=== PATIENT | female | born 1985 | race Caucasian/White ===

== ENCOUNTER 2016-06-09 13:03 | Inpatient (IN) | payer BC ==
[~2016-06-09] VITALS: Ht 167.6 cm; Wt 68.2 kg
[2016-06-09 13:53] LABS: BASOPHIL % 0.5 % (0-2); PLATELET COUNT 173 x10^3mcL (130-400)
[2016-06-09 13:54] LABS: RED CELL DISTRIBUTION WIDTH 15.3 % (11.5-14.5)
[2016-06-09 14:21] LABS: CALCIUM 8.8 mg/dL (8.5-10.1); CHLORIDE SERUM 102 mmol/L (98-107); CREATININE SERUM 0.7 mg/dL (0.6-1.0); GFR1 > 60 mL/min; GLUCOSE SERUM 101 mg/dL (74-106); POTASSIUM SERUM 3.7 mmol/L (3.5-5.1); SODIUM SERUM 138 mmol/L (136-145)
[2016-06-09 14:33] LABS: ALBUMIN 4.1 g/dL (3.4-5.0); ALKALINE PHOSPHATASE 54 U/L (46-116); ALT/SGPT 21 U/L (14-59); AST/SGOT 19 U/L (15-37); BILIRUBIN TOTAL 0.5 mg/dL (0.20-1.00); LIPASE 158 IU/L (73-393); T4(THYROXINE) 9.7 ug/dL (4.7-13.3); TOTAL PROTEIN, SERUM 7.8 g/dL (6.4-8.2)
[2016-06-09 15:33] LABS: AMPHETAMINE QUAL UR NONE DETECTED (NEG <=1000)
[2016-06-09 18:03] LABS: microscopic required? NO
[2016-06-09 18:15] LABS: CHOLESTEROL/HDL RATIO 1.9
[2016-06-09 18:20] LABS: UA SPECIFIC GRAVITY <=1.005 (1.005-1.035); urine erythrocyte NEGATIVE (NEGATIVE)
[2016-06-09 19:57] VITALS: BP 134/88
[2016-06-09 21:06] VITALS: BP 110/75
[2016-06-10 05:46] VITALS: BP 112/63
[2016-06-10 06:21] LABS: CALCIUM 8.1 mg/dL (8.5-10.1); CARBON DIOXIDE 23.9 mmol/L (21-32); CHLORIDE SERUM 110 mmol/L (98-107); CREATININE SERUM 0.7 mg/dL (0.6-1.0); GFR1 > 60 mL/min; GLUCOSE SERUM 84 mg/dL (74-106); MAGNESIUM 1.9 mg/dL (1.8-2.4); PHOSPHOROUS 3.6 mg/dL (2.5-4.9); SODIUM SERUM 144 mmol/L (136-145)
[2016-06-10 06:36] LABS: BASOPHIL % 0.5 % (0-2); PLATELET COUNT 139 x10^3mcL (130-400)
[2016-06-10 06:37] LABS: RED CELL DISTRIBUTION WIDTH 14.7 % (11.5-14.5)
[2016-06-10 09:20] VITALS: BP 114/77
[2016-06-10 13:21] VITALS: BP 126/63
[2016-06-10 17:00] VITALS: BP 113/69
== END 2016-06-10 20:03 | disposition left against medical advice (07) | DRG 206 ==
LOC: ED 13:03 → DU 17:36
PROVIDERS: Emergency Medicine; ADMIT Family Medicine
DX: M94.0 Chondrocostal junction syndrome [Tietze] (principal); J45.909 Unspecified asthma, uncomplicated; H93.19 Tinnitus, unspecified ear; M79.7 Fibromyalgia; F41.8 Other specified anxiety disorders; M06.9 Rheumatoid arthritis, unspecified; Z68.24 Body mass index [BMI] 24.0-24.9, adult
CPT/HCPCS: 80307; 83880; 85378; J7030; Q0092